=== PATIENT | female | born 1990 | race African-American/Black ===

== ENCOUNTER 2018-01-20 10:32 | Emergency (ER) | payer MEDICAID, MEDICARE ==
[~2018-01-20] VITALS: Ht 167.6 cm; Wt 78.0 kg
[2018-01-20] MEDS ORDERED: KETOROLAC 60MG/2ML VIAL IM ONE (11:15)
[2018-01-20 11:36] VITALS: BP 142/82
== END 2018-01-20 12:09 | disposition home or self-care (01) ==
LOC: ER 10:41
DX: K04.7 Periapical abscess without sinus (principal)
CPT/HCPCS: 96372; 99283; J1885

== ENCOUNTER 2020-04-20 12:33 | Emergency (ER) | payer MEDICARE ==
[~2020-04-20] VITALS: Ht 167.6 cm; Wt 68.0 kg
[2020-04-20] MEDS ORDERED: IBUPROFEN 600MG TABLET PO STA (13:29)
[2020-04-20 14:15] VITALS: BP 133/73
== END 2020-04-20 14:59 | disposition home or self-care (01) ==
LOC: ER 12:33
DX: J02.9 Acute pharyngitis, unspecified (principal); B34.9 Viral infection, unspecified
CPT/HCPCS: 71045; 99283

== ENCOUNTER 2022-05-27 17:37 | Emergency (ER) | payer MEDICAID, MEDICARE, OTHER ==
[~2022-05-27] VITALS: Ht 167.6 cm; Wt 84.0 kg
[2022-05-27 17:46] VITALS: BP 140/74
[2022-05-27] MEDS ORDERED: nyquil (17:48)
[2022-05-27] MEDS ORDERED: dayquil (17:48)
[2022-05-27] MEDS ORDERED: KETOROLAC 30MG/ML VIAL IV STA (18:53)
[2022-05-27] MEDS ORDERED: ACETAMINOPHEN 325MG TABLET PO STA (18:53)
[2022-05-27] MEDS ORDERED: SODIUM CHLORIDE 0.9% 500 ML IV ONE (19:00)
[2022-05-27 19:54] LABS: CLARITY URINE CLOUDY (CLEAR); COLOR URINE DARK YELLOW (YELLOW); KETONES URINE TRACE (NEGATIVE); LEUKOCYTE ESTERASE URINE NEGATIVE (NEGATIVE); NITRITE URINE NEGATIVE (NEGATIVE); OCCULT BLOOD URINE 1+ (NEGATIVE); PH URINE 5.5 (4.5-8.0); PROTEIN URINE 1+ (NEGATIVE); SPECIFIC GRAVITY URINE 1.037 (1.005-1.030)
[2022-05-27 20:09] LABS: BASOPHILS % 0.5 % (0.0-2.0); HEMATOCRIT. 31.7 % (36.0-48.0); HEMOGLOBIN. 9.9 g/dL (12.0-16.0); LYMPHOCYTES % 7.8 % (20.0-50.0); MEAN CORPUSCULAR HEMOGLOBIN 23.8 pg (28.0-32.0); MEAN CORPUSCULAR VOLUME 76.3 fL (81.0-99.0); MEAN PLATELET VOLUME 8.9 fl (7.4-10.4); MONOCYTES % 11.8 % (2.0-8.0); NEUTROPHILS % 79.9 % (40.0-76.0); PLATELET 239 x1000/uL (130-400); RED BLOOD CELL COUNT 4.15 mill/uL (4.2-5.4); RED CELL DISTRIBUTION WIDTH 19.3 % (11.6-14.6)
[2022-05-27 20:16] LABS: CHLORIDE 107 mEq/L (98-107)
[2022-05-27 20:45] LABS: HCG SCREEN NEGATIVE
[2022-05-27] MEDS ORDERED: IOHEXOL-350 100 ML BOTTLE ONE (23:21)
[2022-05-28] MEDS ORDERED: ACETAMINOPHEN 325MG TABLET PO ONE
== END 2022-05-28 05:55 | disposition left against medical advice (07) ==
LOC: ER 17:37
DX: B34.9 Viral infection, unspecified (principal); D64.9 Anemia, unspecified; M79.18 Myalgia, other site; Z20.822 Contact with and (suspected) exposure to COVID-19
CPT/HCPCS: 36415; 71045; 71275; 80053; 81003; 81025; 84484; 84703; 85025; 85379; 87426; 87804; 93005; 96361; 96374; 99285; C9803; J1885; J7030; Q9967

== ENCOUNTER 2025-08-27 11:43 | Emergency (ER) | payer MEDICAID, OTHER ==
[~2025-08-27] VITALS: Ht 172.7 cm; Wt 80.0 kg
[~2025-08-27 11:43] MED LIST: dayquil; nyquil
[2025-08-27 11:46] VITALS: TEMP 36.6; O2SAT 99
[2025-08-27] MEDS: HYDROXYZINE 25MG TABLET PO ONE (13:00)
[2025-08-27 14:27] LABS: BASOPHILS % 1.1 % (0.0-2.0); EOSINOPHILS % 0.9 % (0.0-5.0); HEMATOCRIT. 36.1 % (36.0-48.0); HEMOGLOBIN. 11.3 g/dL (12.0-16.0); LYMPHOCYTES % 30.3 % (20.0-50.0); MEAN PLATELET VOLUME 9.3 fl (7.4-10.4); MONOCYTES % 4.9 % (2.0-8.0); NEUTROPHILS % 62.8 % (40.0-76.0); PLATELET 301 x1000/uL (130-400); RED BLOOD CELL COUNT 4.79 mill/uL (4.2-5.4); RED CELL DISTRIBUTION WIDTH 18.2 % (11.6-14.6)
[2025-08-27 14:40] LABS: CREATININE 0.7 mg/dL (0.6-1.0)
[2025-08-27 14:41] LABS: TROPONIN I HIGH SENSITIVITY < 4 ng/L (3.0-34); UREA NITROGEN BLOOD 6 mg/dL (9-23)
[2025-08-27 14:42] LABS: ASPARTATE AMINOTRANSFERASE 16 IU/L (<34)
[2025-08-27 14:43] LABS: BILIRUBIN DIRECT 0.2 mg/dL (<=3.0); BILIRUBIN TOTAL 0.7 mg/dL (0.1-1.0); PROTEIN TOTAL 8.4 g/dL (6.0-8.3)
[2025-08-27] MEDS ORDERED: HYDR50TA55 MT (15:33)
[2025-08-27 15:47] VITALS: BP 134/78; PULSE 64; RESP 16; O2SAT 100
== END 2025-08-27 15:48 | disposition home or self-care (01) ==
LOC: ER 11:43
DX: R07.89 Other chest pain (principal); F41.0 Panic disorder [episodic paroxysmal anxiety]; R06.02 Shortness of breath; F10.90 Alcohol use, unspecified, uncomplicated; Y90.9 Presence of alcohol in blood, level not specified
CPT/HCPCS: 36415; 71045; 80048; 80076; 81025; 84484; 85025; 93005; 99285